=== PATIENT | male | born 1990 | race Caucasian/White ===

== ENCOUNTER 2019-06-07 07:28 | Emergency (ER) | payer BC ==
[~2019-06-07] VITALS: Ht 188 cm; Wt 86.2 kg
[2019-06-07] MEDS ORDERED: SODIUM CHLORIDE 0.9% 1000ML 1,000 ML IV ONE ×2 (08:00→08:06)
--- NOTE | 2019-06-07 08:05 | NUR ---
pt girlfriend notifies nurse something is wrong with pt; nurse goes into room and sees pt is pale and diaphoretic with bp 82/35 p 76 and immediately starts establishes 2nd iv access in right ac and 2 liters ns bolus notifies jayme johnson and dr galeana who examines pt immediately; pt placed on mastercam programmer and ekg performed; pt starts to improve but still pale
[2019-06-07] MEDS ORDERED: SODIUM CHLORIDE 0.9% 1000ML 1,000 ML ONE (08:14)
[2019-06-07] MEDS ORDERED: AMPICILLIN SOD/SULBACTAM 3GM 100 ML IV STA (08:27)
--- NOTE | 2019-06-07 08:40 | Diagnostic Imaging Report ---
EXAMINATION: CHEST SINGLE (PORTABLE) INDICATION: Fever COMPARISON: None FINDINGS: LINES/TUBES:None LUNGS:The lungs are well-inflated. Patchy opacity at the right middle lobe with small air bronchograms. PLEURA:No pleural effusion or pneumothorax. MEDIASTINUM:The cardiomediastinal silhouette appears normal in size and shape. BONES/SOFT TISSUES:No acute osseous injury. ABDOMEN:No free air under the diaphragm. IMPRESSION: Patchy opacity at the right middle lobe with small air bronchograms, possibly representing aspiration and/or pneumonia in the proper clinical setting. Signed by: Evie Costello MD on 06/07/2019 8:37 AM
[2019-06-07 08:46] LABS: BASOPHILS % 0.5 % (0.0-1.0); EOSINOPHILS % 0.5 % (0.0-6.0); HEMOGLOBIN 14.8 g/dL (14.0-18.0); LYMPHOCYTES # (AUTO) 0.9 (1.0-3.2); LYMPHOCYTES % 23.7 % (18.0-39.1); MEAN CORPUSCULAR HEMOGLOBIN 30.5 pg (28-32); MEAN CORPUSCULAR HGB CONC 33.6 g/dL (31-35); MEAN CORPUSCULAR VOLUME 90.5 fL (81-99); MONOCYTES # (AUTO) 1.1 (0.2-0.8); MONOCYTES % 28.5 % (4.4-11.3); NEUTROPHILS # (AUTO) 1.7 (2.1-6.9); NEUTROPHILS % 46.5 % (38.7-80.0); PLATELET COUNT 168 x10e3/uL (140-360); RED BLOOD COUNT 4.86 x10e6/uL (4.3-5.7); RED CELL DISTRIBUTION WIDTH 12.6 % (11.7-14.4)
[2019-06-07 09:13] LABS: ALBUMIN 3.5 g/dL (3.5-5.0); ALBUMIN/GLOBULIN RATIO 0.8 (0.8-2.0); ANION GAP 12.9 mmol/L (8-16); CALCIUM 9.9 mg/dL (8.4-10.2); CREATININE, SERUM 1.46 mg/dL (0.72-1.25); POTASSIUM 3.9 mmol/L (3.5-5.1)
[2019-06-07] MEDS ORDERED: ONDANSETRON HCL INJ 2MG/ML 2ML 2 MG/ML VIAL IV STA (09:14)
[2019-06-07] MEDS ORDERED: KETOROLAC TROMETHAMINE 30 MG/ML VIAL IV STA (09:14)
[2019-06-07] MEDS ORDERED: DEXAMETHASONE SOD PHOS 10 MG/1 ML VIAL IV ONE (09:15)
[2019-06-07] MEDS ORDERED: ACETAMINOPHEN/CODEINE 300MG - 30MG TAB PO ONE (09:15)
[2019-06-07] MEDS ORDERED: SODIUM CHLORIDE 0.9% 50ML 50 ML ONE (11:06)
[2019-06-07] MEDS ORDERED: IOPAMIDOL 370 MG/ML 200 ML INFUS..BTL INJ ONE (11:07)
--- NOTE | 2019-06-07 11:09 | Diagnostic Imaging Report ---
History: Fever x3 days, possible left throat abscess Comparison studies: None Technique: Axial, coronal and sagittal images from the skull base to the thoracic inlet. Coronal and sagittal images reconstructed from the axial data. Dose modulation, iterative reconstruction, and/or weight based adjustment of the mA/kV was utilized to reduce the radiation dose to as low as reasonably achievable. Intravenous contrast: 100 cc of Omnipaque 300. Findings: Pharynx: Enlarged oropharyngeal palatine and lingual tonsils. Asymmetrically enlarged left oropharyngeal tonsil has a striated appearance consistent with tonsillitis. No rim-enhancing fluid collection. Enlarged oropharyngeal tonsils abut the uvula and result in mild narrowing of the oropharyngeal airway. Reactive nasopharyngeal adenoids are also mildly prominent. Larynx: No abnormalities. Masses: None. Lymph nodes: Multiple reactive enhancing, nonnecrotic, noncalcified mildly enlarged left suprahyoid and infrahyoid jugular chain lymph nodes. Vessels: Arteries and veins are patent. Glands (thyroid, parotid and submandibular): Normal in size and symmetric. No masses. Orbits: No abnormalities. Paranasal sinuses: Clear. Temporal bones: No gross abnormalities. Skull base and facial bones: Intact. Cervical spine: No abnormalities IMPRESSION: Pharyngitis and left tonsillitis with mildly enlarged left cervical lymph nodes. No tonsillar or peritonsillar abscess. Signed by: Dr. Jhonatan Wiseman M.D. on 06/07/2019 11:06 AM
[2019-06-07] MEDS ORDERED: TYLENOL WITH C1 EACH PO (11:44)
[2019-06-07 12:05] VITALS: BP 112/68
[2019-06-07 12:28] LABS: INR 1.01; PROTHROMBIN TIME 13.8 seconds (11.9-14.5)
[2019-06-07 12:29] LABS: PARTIAL THROMBOPLASTIN TIME 32.5 seconds (23.8-35.5)
== END 2019-06-07 12:07 | disposition home or self-care (01) ==
LOC: ER 07:28
DX: R50.9 Fever, unspecified (principal); R05 Cough; J02.9 Acute pharyngitis, unspecified
CPT/HCPCS: 36415; 70491; 71045; 80053; 82948; 83518; 83605; 85025; 85610; 85730; 87040; 87070; 87400; 93005; 99284; J0295; J1100; J1885; J2405; J7030; Q9967